=== PATIENT | male | born 1950 | race Caucasian/White ===

== ENCOUNTER 2018-12-05 00:25 | Emergency (ER) | payer MEDICARE ==
[~2018-12-05] VITALS: Ht 190.5 cm; Wt 86.2 kg
[2018-12-05 00:28] VITALS: Ht 190.5 cm; Wt 86.2 kg
[2018-12-05 00:59] LABS: CALCIUM 8.4 mg/dL (8.5-10.1); CARBON DIOXIDE 20.7 mmol/L (21-32); CHLORIDE SERUM 104 mmol/L (98-107); GFR1 > 60 mL/min; GLUCOSE SERUM 147 mg/dL (74-106); POTASSIUM SERUM 4.1 mmol/L (3.5-5.1); SODIUM SERUM 138 mmol/L (136-145)
[2018-12-05 01:04] LABS: PLATELET COUNT 148 x10^3mcL (130-400)
[2018-12-05 01:08] LABS: ALBUMIN 3.4 g/dL (3.4-5.0); ALKALINE PHOSPHATASE 60 U/L (46-116); ALT/SGPT 12 U/L (16-63); AST/SGOT 18 U/L (15-37); BILIRUBIN TOTAL 0.76 mg/dL (0.20-1.00)
[2018-12-05 03:46] VITALS: BP 165/97
== END 2018-12-05 03:46 | disposition short-term general hospital (02) ==
LOC: ED 00:25
PROVIDERS: Emergency Medicine
DX: J45.909 Unspecified asthma, uncomplicated (principal); I50.9 Heart failure, unspecified; I46.9 Cardiac arrest, cause unspecified
CPT/HCPCS: 83880; 85378; G0480; J2405; Q0092